=== PATIENT | female | born 1980 | race American Indian/Alaskan Native ===

== ENCOUNTER 2017-01-07 23:47 | Emergency (ER) | payer SELFPAY ==
[2017-01-08 00:16] VITALS: BP 152/106
--- NOTE | 2017-01-08 04:11 | Emergency Department Report ---
- General Chief complaint: Skin/Abscess/Foreign Body Stated complaint: INSECT BITE LEFT LEG Time Seen by Provider: 01/08/17 03:45 Source: patient Mode of arrival: Ambulatory Limitations: No Limitations - History of Present Illness Initial comments: Patient comes into the ER today with complaints of left lower leg abscess. Patient has had lesion for the past one week. Patient never felt anything but she believes something may have bit her. Patient has drained the lesion twice within the past week. Patient states that the lesion keeps swelling backup with infection. Patient denies any fever, body aches, vomiting, loss of sensation. MD complaint: abscess/boil - Related Data Previous Rx's Medication Instructions Recorded Last Taken Type Cephalexin [Keflex] 500 mg PO Q8HR #30 cap 01/08/17 Unknown Rx Sulfamethoxazole/Trimethoprim 1 each PO BID #20 tablet 01/08/17 Unknown Rx [Bactrim DS TAB] traMADol [Ultram 50 MG tab] 50 mg PO Q4HR PRN #20 tablet 01/08/17 Unknown Rx Allergies Allergy/AdvReac Type Severity Reaction Status Date / Time No Known Allergies Allergy Verified 01/08/17 00:13 Abscess Boil HPI - HPI Chief Complaint: Skin/Abscess/Foreign Body Stated Complaint: INSECT BITE LEFT LEG Time Seen by Provider: 01/08/17 03:45 Home Medications: Previous Rx's Medication Instructions Recorded Last Taken Type Cephalexin [Keflex] 500 mg PO Q8HR #30 cap 01/08/17 Unknown Rx Sulfamethoxazole/Trimethoprim 1 each PO BID #20 tablet 01/08/17 Unknown Rx [Bactrim DS TAB] traMADol [Ultram 50 MG tab] 50 mg PO Q4HR PRN #20 tablet 01/08/17 Unknown Rx Allergies/Adverse Reactions: Allergies Allergy/AdvReac Type Severity Reaction Status Date / Time No Known Allergies Allergy Verified 01/08/17 00:13 ED Review of Systems ROS: Stated complaint: INSECT BITE LEFT LEG Other details as noted in HPI Constitutional: denies: chills, fever Eyes: denies: eye pain, eye discharge, vision change ENT: denies: ear pain, throat pain Respiratory: denies: cough, shortness of breath, wheezing Cardiovascular: denies: chest pain, palpitations Endocrine: no symptoms reported Gastrointestinal: denies: abdominal pain, nausea, diarrhea Genitourinary: denies: urgency, dysuria, discharge Musculoskeletal: denies: back pain, joint swelling, arthralgia Skin: lesions (left lower leg abscess). denies: rash Neurological: denies: headache, weakness, paresthesias Psychiatric: denies: anxiety, depression Hematological/Lymphatic: denies: easy bleeding, easy bruising ED Past Medical Hx - Past Medical History Previous Medical History?: No - Surgical History Past Surgical History?: Yes Additional Surgical History: Galbladder Stent - Social History Smoking Status: Current Every Day Smoker Substance Use Type: Alcohol, Marijuana - Medications Home Medications: Home Medications Medication Instructions Recorded Confirmed Last Taken Type Cephalexin [Keflex] 500 mg PO Q8HR #30 cap 01/08/17 Unknown Rx Sulfamethoxazole/Trimethoprim 1 each PO BID #20 tablet 01/08/17 Unknown Rx [Bactrim DS TAB] traMADol [Ultram 50 MG tab] 50 mg PO Q4HR PRN #20 tablet 01/08/17 Unknown Rx ED Physical Exam - General Limitations: No Limitations General appearance: alert, in no apparent distress - Head Head exam: Present: atraumatic, normocephalic - Eye Eye exam: Present: normal appearance - ENT ENT exam: Present: mucous membranes moist - Neck Neck exam: Present: normal inspection - Respiratory Respiratory exam: Present: normal lung sounds bilaterally. Absent: respiratory distress - Cardiovascular Cardiovascular Exam: Present: regular rate, normal rhythm. Absent: systolic murmur, diastolic murmur, rubs, gallop - GI/Abdominal GI/Abdominal exam: Present: soft, normal bowel sounds - Extremities Exam Extremities exam: Present: normal inspection, tenderness (red cellulitic tender area noted to middle of left lower leg anterior and lateral. No palpable area of loculation noted.), normal capillary refill. Absent: pedal edema, joint swelling, calf tenderness - Back Exam Back exam: Present: normal inspection - Neurological Exam Neurological exam: Present: alert, oriented X3 - Psychiatric Psychiatric exam: Present: normal affect, normal mood - Skin Skin exam: Present: warm, dry, intact, normal color. Absent: rash ED Course Vital Signs 01/07/17 23:55 Temperature 98.7 F Pulse Rate 105 H Respiratory 16 Rate Blood Pressure 152/106 [Right] O2 Sat by Pulse 99 Oximetry ED Medical Decision Making - Medical Decision Making Patient is nontoxic and hemodynamically stable. Patient does have cellulitic area noted to left lower leg. The area does not have examination that I believe warrants an incision and drainage at this time. I will start patient on antibiotics appropriately as well as prescribe her some pain medications for symptomatic relief. Patient is in agreement with treatment plan the patient is stable for discharge. Critical care attestation.: If time is entered above; I have spent that time in minutes in the direct care of this critically ill patient, excluding procedure time. ED Disposition Clinical Impression: Cellulitis of leg, left Disposition: DC- TO HOME OR SELFCARE Is pt being admited?: No Does the pt Need Aspirin: No Condition: Good Instructions: Cellulitis (ED), Abscess (ED) Prescriptions: Cephalexin [Keflex] 500 mg PO Q8HR #30 cap Sulfamethoxazole/Trimethoprim [Bactrim DS TAB] 1 each PO BID #20 tablet traMADol [Ultram 50 MG tab] 50 mg PO Q4HR PRN #20 tablet PRN Reason: Pain Referrals: PRIMARY CARE, [Primary Care Provider] - 3-5 Days Time of Disposition: 04:11
== END 2017-01-08 04:27 | disposition home or self-care (01) ==
LOC: ED 23:47
DX: L03.116 Cellulitis of left lower limb (principal); F17.200 Nicotine dependence, unspecified, uncomplicated; F12.90 Cannabis use, unspecified, uncomplicated
CPT/HCPCS: 99282

== ENCOUNTER 2017-08-16 16:32 | Emergency (ER) | payer MEDICAID ==
[2017-08-16] MEDS ORDERED: TYLENOL ONE (23:44)
[2017-08-16] MEDS ORDERED: TYLENOL PO ONE (23:45)
[2017-08-17] MEDS ORDERED: ULTRAM PO ONE (03:47)
--- NOTE | 2017-08-17 03:49 | Emergency Department Report ---
Minor Respiratory - HPI Chief Complaint: Upper Respiratory Infection Stated Complaint: REINIER, COUGH, HEADACHE Time Seen by Provider: 08/17/17 03:34 Duration: 3 Days Severity: moderate Minor Respiratory: Yes Rhinorrhea, Yes Able to Tolerate Fluids, Yes Cough, Yes Sick Contacts, Yes Fever, No Sore Throat, No Ear Pain, No Hemoptysis, No Chest Pain, No Shortness of Breath Other History: This is a 37 y.o. female presents with cough, body aches fever, and congestion for 3 days. Patient states her father was sick but he Monday from kidney complications. That is the only person she has been around ill. Current daily marijuana smoker. She took robitussin yesterday 3 times without improvement of fever. Denies chest pain, SOB, wheezing, abdominal pain, nausea & vomiting. ED Review of Systems ROS: Stated complaint: REINIER, COUGH, HEADACHE Other details as noted in HPI Constitutional: see HPI, chills, fever, malaise. denies: diaphoresis, weakness ENT: throat pain, congestion. denies: ear pain, dental pain, hearing loss, epistaxis Respiratory: see HPI, cough. denies: orthopnea, shortness of breath, SOB with exertion, SOB at rest, stridor, wheezing Cardiovascular: denies: chest pain, palpitations Gastrointestinal: denies: abdominal pain, nausea, vomiting, diarrhea, constipation Musculoskeletal: myalgia (generalized body aches) Neurological: denies: headache, weakness, paresthesias ED Past Medical Hx - Past Medical History Hx Hypertension: Yes - Surgical History Past Surgical History?: No Additional Surgical History: Galbladder Stent - Social History Smoking Status: Never Smoker Substance Use Type: Marijuana - Medications Home Medications: Home Medications Medication Instructions Recorded Confirmed Last Taken Type Cephalexin [Keflex] 500 mg PO Q8HR #30 cap 01/08/17 Unknown Rx Sulfamethoxazole/Trimethoprim 1 each PO BID #20 tablet 01/08/17 Unknown Rx [Bactrim DS TAB] traMADol [Ultram 50 MG tab] 50 mg PO Q4HR PRN #20 tablet 01/08/17 Unknown Rx Benzonatate 200 mg PO TID PRN #30 capsule 08/17/17 Unknown Rx Fluticasone [Flonase] 1 spray NS QDAY #1 bottle 08/17/17 Unknown Rx Minor Respiratory Exam - Exam General: Vital signs noted. No distress. Alert and acting appropriately. HEENT: Yes Pharyngeal Erythema, Yes Moist Mucous Membranes, Yes Rhinorrhea ( clear, turbinates red and swollen), No Pharyngeal Exudates, No Conjuctival Injection, No Frontal Tenderness, No Maxillary Tenderness Ear: Neither TM Bulge, Neither TM Erythema, Neither EAC Pain, Neither EAC Discharge Neck: Yes Supple, No Adenopathy Lungs: Yes Good Air Exchange, Yes Cough, No Wheezes, No Ronchi, No Stridor, No Labored Respirations, No Retractions, No Use of Accessory Muscles, No Other Abnormal Lung Sounds Heart: No Regular (tachycardia), No Murmur Abdomen: Yes Normal Bowel Sounds, No Tenderness, No Peritoneal Signs Skin: No Rash, No Edema Neurologic: Alert and oriented, no deficits. Musculoskeletal: Unremarkable. ED Course Vital Signs 08/16/17 08/16/17 08/17/17 16:55 22:34 02:30 Temperature 100.2 F H 100.2 F H 99.7 F H Pulse Rate 122 H 110 H 93 H Respiratory 18 16 17 Rate Blood Pressure 132/96 Blood Pressure 182/93 [Left] O2 Sat by Pulse 97 97 100 Oximetry Vital Signs 08/16/17 08/16/17 08/17/17 16:55 22:34 02:30 Temperature 100.2 F H 100.2 F H 99.7 F H Pulse Rate 122 H 110 H 93 H Respiratory 18 16 17 Rate Blood Pressure 132/96 Blood Pressure 182/93 [Left] O2 Sat by Pulse 97 97 100 Oximetry 08/17/17 06:52 Temperature 99.2 F Pulse Rate 88 Respiratory 16 Rate Blood Pressure Blood Pressure 135/87 [Left] O2 Sat by Pulse 97 Oximetry ED Medical Decision Making - Radiology Data Radiology results: image reviewed IMPRESSION: No active chest disease. - Medical Decision Making This is a 37 y.o. female presents with upper respiratory symptoms. Patient is tachycardia with fever. She was assessed by me. Daily marijuana smoker. Chest xray IMPRESSION: No active chest disease. Read by radiologist. Given tylenol and ultram in ER. Tolerating oral fluids in ER. Heart rate and temperature trending down. Patient is stable to treat outpatient. Upper Respiratory Infection. Discharged home with supportive care. Start flonase and benzonatate. Follow up with PCP if symptoms don't improve in 2 weeks. Critical care attestation.: If time is entered above; I have spent that time in minutes in the direct care of this critically ill patient, excluding procedure time. ED Disposition Clinical Impression: Viral syndrome URI (upper respiratory infection) Qualifiers: URI type: acute nasopharyngitis (common cold) Qualified Code(s): J00 - Acute nasopharyngitis [common cold] Disposition: TO HOME OR SELFCARE Is pt being admited?: No Does the pt Need Aspirin: No Condition: Stable Instructions: Upper Respiratory Infection (ED), Viral Syndrome (ED), Cold Symptoms (ED) Additional Instructions: Increase fluid intake. Wash hands frequently. Continue taking tylenol, ibuprofen, or naproxen to control fever and pain. Symptoms may last 2 weeks. Follow up with Primary Care Provider or ER if fever, wheezing, headache, or chest pain. Prescriptions: Benzonatate 200 mg PO TID PRN #30 capsule PRN Reason: Cough Fluticasone [Flonase] 1 spray NS QDAY #1 bottle Referrals: [facility] [Outside] - 3-5 Days [facility] [Outside] - 3-5 Days [facility] [Outside] - 3-5 Days Forms: Work/School Release Form(ED) Time of Disposition: 06:49 Print Language: [place]IZ[place]
--- NOTE | 2017-08-17 04:47 | XRay Report ---
FINAL REPORT EXAM: XR CHEST ROUTINE 2V HISTORY: cough, history of pneumonia TECHNIQUE: PA and lateral views of the chest were submitted. There are no previous studies available for comparison. FINDINGS: Heart size and mediastinum appear normal. The lungs are clear. Pleural fluid is not seen. The bones and soft tissues are well maintained. IMPRESSION: No active chest disease.
[2017-08-17 07:23] VITALS: BP 122/74
== END 2017-08-17 07:27 | disposition home or self-care (01) ==
LOC: ED 16:32
DX: B34.9 Viral infection, unspecified (principal); J00 Acute nasopharyngitis [common cold]; I10 Essential (primary) hypertension; F12.10 Cannabis abuse, uncomplicated
CPT/HCPCS: 71046